=== PATIENT | male | born 1985 | race Caucasian/White ===

== ENCOUNTER 2019-11-03 10:18 | Inpatient (IN) ==
[2019-11-03] MEDS ORDERED: ZOFRAN IV ONE (10:31)
[2019-11-03 10:42] LABS: BASO# 0.02 X1000 (0.0-0.2); BASO% 0.2 % (0.0-0.8); EOS# 0.02 X1000 (0.0-0.7); EOS% 0.2 % (0.0-10.0); HEMOGLOBIN 15.6 g/dL (14.0-18.0); IMM GRAN# 0.02 X1000 (0.0-0.04); IMM GRAN% 0.2 % (0.0-0.5); LYMPH# 1.66 X1000 (1.2-3.4); LYMPH% 19.9 % (20.5-51.1); MCH 29.7 PG (27-31); MCHC 34.7 g/dL (33-37); MCV 85.7 FL (81-99); MONO# 0.58 X1000 (0.11-0.59); MPV 10.9 FL (7.4-10.4); NEUT# 6.04 X1000 (1.4-6.5); NEUT% 72.5 % (42.2-75.2); PLT 217 X1000 (130-400); RBC 5.25 XMIL (4.7-6.1); RDW 12.5 % (11.5-14.5); WBC 8.34 X1000 (4.8-10.8)
[2019-11-03 10:56] LABS: AGAP 20; ALBUMIN 4.9 g/dL (3.5-5.0); ALKALINE PHOSPHATASE 97 U/L (32-122); BUN 8 mg/dL (8-22); CHLORIDE 100 mmol/L (98-107); CK PROFILE 134 U/L (24-204); COSMO 276; CREATININE 0.8 mg/dL (0.7-1.2); ESTIMATED GFR > 60; GLUCOSE 193 mg/dL (70-104); GOT 24 U/L (10-34); GPT 22 U/L (10-44); POTASSIUM 3.8 mmol/L (3.5-5.1); SODIUM 136 mmol/L (136-145); TCO2 17 mmol/L (25-35); TOTAL PROTEIN 7.6 g/dL (6.3-8.3)
[2019-11-03 10:58] LABS: BE -1.8 mmoll (-3.0-3.0); BLOOD TYPE ARTERIAL; HCO3-(ACT) 23.4 mmoll (20.0-26.0); METHB 1.6 % (0.0-1.5); O2(CT) 21.9 mL/dL (15.0-23.0); O2HB 95.3 % (95.0-99.0); PCO2(98.6) 30 mmHg (35-45); PO2(98.6) 99 mmHg (60-100); SAMPLE BLOOD; THB 16.3 g/dL (11.5-17.4); pH(98.6) 7.45 (7.35-7.45)
[2019-11-03 11:08] LABS: INFLUENZA A NEGATIVE (NEGATIVE); INFLUENZA B NEGATIVE (NEGATIVE)
[2019-11-03 11:10] LABS: URINE SOURCE CLEAN CATCH
[2019-11-03 11:12] LABS: BILIRUBIN URINE NEGATIVE (NEGATIVE); BLOOD URINE TRACE (NEGATIVE); COLOR YELLOW; GLUCOSE URINE 70 mg/dL (NEGATIVE); KETONE URINE TRACE mg/dL (NEGATIVE); LEUKOCYTES URINE NEGATIVE (NEGATIVE); NITRITE URINE NEGATIVE (NEGATIVE); PROTEIN URINE TRACE mg/dL (NEGATIVE); SP GRAVITY URINE 1.018; TURBIDITY URINE CLEAR (CLEAR); UROBILINOGEN URINE NORMAL (NORMAL)
[2019-11-03 11:13] LABS: UR EPITHELIAL CELLS <10 /HPF (<10); URINE BACTERIA NEGATIVE /HPF; URINE RBC <10 /HPF (<10); URINE WBC <10 /HPF (<10)
[2019-11-03 11:21] LABS: UR AMPHETAMINES QUAL PRESUMPTIVE POSITIVE (NONE DETECT); UR BARBITUATES QUAL NONE DETECTED (NONE DETECT); UR BENZODIAZEPIN QUAL PRESUMPTIVE POSITIVE (NONE DETECT); UR CANNABINOIDS QUAL NONE DETECTED (NONE DETECT); UR COCAINE QUAL NONE DETECTED (NONE DETECT); UR METHADONE QUAL NONE DETECTED (NONE DETECT); UR METHAMPHETAMINE QUAL NONE DETECTED (NONE DETECT); UR OPIATES QUAL PRESUMPTIVE POSITIVE (NONE DETECT); UR OXYCODONE QUAL NONE DETECTED (NONE DETECT); UR PCP QUAL NONE DETECTED (NONE DETECT); UR PROPOXYPHENE QUAL NONE DETECTED (NONE DETECT); UR TCA QUAL NONE DETECTED (NONE DETECT)
[2019-11-03 11:35] LABS: ALLEN TEST YES; MODALITY ROOM AIR
--- NOTE | 2019-11-03 11:40 | EKG Report ---
Test Performed on : 11/03/2019 10:26:44 AM Test Reason : emboli Blood Pressure : / mmHG Vent. Rate : 089 BPM Atrial Rate : 089 BPM P-R Int : 130 ms QRS Dur : 102 ms QT Int : 372 ms P-R-T Axes : 077 078 066 degrees QTc Int : 452 ms Normal sinus rhythm. Incomplete right bundle branch block Borderline ECG No previous ECGs available Unconfirmed Result
--- NOTE | 2019-11-03 11:46 | Diag Imaging Result Doc PS360 ---
EXAM: CHEST-2 VIEWS HISTORY: cough TECHNIQUE: Chest two views COMPARISON: None. FINDINGS: The lungs are well expanded. The heart is not enlarged. The vessels are not distended. There are no infiltrates. No pleural effusions. IMPRESSION: No pneumonia Electronically signed by Anthony Bean 11/03/2019 11:44 AM
[2019-11-03 12:18] LABS: HEMOGLOBIN A1C 5.2 % (4.8-6.0)
--- NOTE | 2019-11-03 12:32 | Diag Imaging Result Doc PS360 ---
EXAM: CT HEAD W/O CONTRAST HISTORY: SYNCOPE TECHNIQUE: CT head without contrast COMPARISON: None. FINDINGS: No parenchymal hemorrhage. No epidural or subdural hematoma. No subarachnoid hemorrhage. No mass identified on this noncontrasted exam. No hydrocephalus. No sinus opacification. IMPRESSION: No hemorrhage. Negative brain CT without contrast. This exam was performed using automated exposure control, adjustment of mA or kV according to patient size, and/or use of iterative reconstruction technique. Electronically signed by Anthony Bean 11/03/2019 12:30 PM
[2019-11-03 12:53] LABS: CK INDEX 0.8 (0.0-2.5); CK-MB 2.71 ng/mL (0.0-5.0)
--- NOTE | 2019-11-03 13:05 | EKG Report ---
Test Performed on : 11/03/2019 12:11:12 PM Test Reason : repeat Blood Pressure : / mmHG Vent. Rate : 084 BPM Atrial Rate : 084 BPM P-R Int : 134 ms QRS Dur : 102 ms QT Int : 372 ms P-R-T Axes : 051 007 034 degrees QTc Int : 439 ms Normal sinus rhythm. Incomplete right bundle branch block Borderline ECG When compared with ECG of 03-NOV-2019 10:26, (Unconfirmed) Questionable change in QRS axis Unconfirmed Result
--- NOTE | 2019-11-03 14:15 | PROVIDER DOCUMENTATION ---
This chart was entered by Pedro Vivar Scribe, acting as scribe for Mynor Figueroa MD. HPI-Syncope/Dizziness - General Chief Complaint: Syncope Stated Complaint: SEIZURE Time Seen by Provider: 11/03/19 10:23 Source: patient, EMS Home Medications: Home Medication List Medication Instructions Recorded Confirmed Last Taken Type Armodafinil 1 tab PO DAILY 11/03/19 11/03/19 Unknown History - History of Present Illness-Syncope/Dizzy Nature of Presenting Problem: 34 yom presents to the ed v/a EMS after syncopal episode. EMS states pt was at [facility] at [place] , pt was sitting on the bleachers and fell over. EMS states pt was AO x3 on arrival. pt states " last thing i remember was waking up to everyone telling me i passed and just watching the 2nd half of the game prior to passing out." pt states " becoming really hot before passing out, pt was wearing a sweater." pt states no food intake this morning. pt c/o bilateral hand tingling, and nausea. Prior Episodes: reports: no prior history Onset/Duration: reports: just prior to arrival Timing: reports: still present Position/Activity at time of episode: reports: sitting Symptoms prior to episode: reports: nausea/vomiting (nausea), diaphoresis. denies: headache, injury Context: reports: lost consciousness Loss of Consciousness: brief (seconds) Location of injury. (If syncope resulted in an injury.): reports: none Current Symptoms: reports: sweaty, nausea. denies: chest pain, abdominal pain, vomiting, headache, headache, blurred vision Recently Seen Here or By Another Healthcare Provider: No Review of Systems - Adult - REVIEW OF SYSTEMS - ADULT Constitutional: denies: chills, fever Eyes: reports: no symptoms reported Ears, Nose, Mouth & Throat: reports: no symptoms reported Cardiovascular: reports: no symptoms reported Respiratory: denies: shortness of breath, wheezing Gastrointestinal: reports: see HPI, nausea. denies: abdominal pain, constipation, diarrhea, vomiting Genitourinary: reports: no symptoms reported Musculoskeletal: reports: no symptoms reported Integumentary: reports: no symptoms reported Neurological: reports: see HPI, syncope. denies: headache/migraines, slurred speech Psychiatric: reports: no symptoms reported Endocrine: reports: see HPI, excessive sweating. denies: change in skin pigment, increased hunger Hematologic/Lymphatic: reports: no symptoms reported Allergic/Immunologic: reports: no symptoms reported All Other Systems: Reviewed and Negative Past History - Adult - PAST MEDICAL HISTORY-ADULT Review of Records: reports: Old Records Reviewed, Nursing Assessment Review, Medications Reviewed, Social history reviewed & non-contributory. Major Childhood Illnesses: reports: denies history Cardiovascular: reports: denies history Respiratory: reports: denies history Gastrointestinal: reports: denies history Obstetrical/Gynecological: reports: denies history Genitourinary: reports: denies history Musculoskeletal: reports: denies history Neurological: reports: denies history Psychiatric: reports: denies history Endocrine/Immune: reports: denies history Other Conditions: reports: denies history - PRIOR SURGERIES/PROCEDURES Surgical/Procedure History: reports: reviewed, not pertinent - IMMUNIZATION STATUS Childhood Immunizations: See Nurse Assessment Flu Vaccine: See Nurse Assessment - FAMILY HISTORY Family History: reviewed, not pertinent - SOCIAL HISTORY Smoking: denies Substance Use: denies Physical Exam-General - PHYSICAL EXAM-ADULT Initial Vital Signs Reviewed: Yes - CONSTITUTIONAL General Appearance: appears well, alert, mild distress. negative: lethargic, slow to respond - RESPIRATORY Respiratory: lungs clear, normal breath sounds - CARDIOVASCULAR Cardiovascular: normal peripheral pulses, regular rate, rhythm - GENITOURINARY Male Genitalia: deferred Rectal Exam: deferred Hemoccult Exam: deferred - SKIN Integumentary: diaphoresis - NEUROLOGIC Neurologic: grossly normal - PSYCHIATRIC Psych/Mental Status: normal mood/affect, normal thought content, normal thought process, oriented x 3 Progress - PLAN OF CARE/RESULTS Progress/Plan/Lab Results: Vital Signs - 8 hr 11/03/19 10:16 11/03/19 11:07 11/03/19 13:14 Temperature 97.2 F L Pulse Rate 99 H 85 84 Respiratory Rate 24 18 15 Blood Pressure 118/74 133/72 124/79 O2 Sat by Pulse Oximetry 98 98 97 Laboratory Results - last 24 hr 11/03/19 11/03/19 11/03/19 10:23 10:25 10:30 WBC RBC Hgb Hct MCV MCH MCHC RDW Std Deviation Plt Count MPV Immature Gran % (Auto) Neut % (Auto) Lymph % (Auto) Haakon % (Auto) Eos % (Auto) Baso % (Auto) Immature Gran # (Auto) Neut # (Auto) Lymph # (Auto) Haakon # (Auto) Eos # (Auto) Baso # (Auto) D-Dimer, Quantitative Specimen Type Sample Site pH pCO2 pO2 HCO3 Base Excess Oxyhemoglobin ABG O2 Sat (Calculated) ABG O2 Saturation ABG Carboxyhemoglobin ABG Methemoglobin Noe Test A-a O2 Difference Total Hemoglobin Lactate Blood Gas Modality FiO2 % Sodium 136 Potassium 3.8 Chloride 100 Carbon Dioxide 17 L Anion Gap 20 BUN 8 Creatinine 0.8 Estimated GFR/1.73 m2 > 60 BUN/Creatinine Ratio 10 Glucose 193 H POC Glucose 162 H Estimat Average Glucose Hemoglobin A1c Calculated Osmolality 276 Calcium 10.0 Total Bilirubin 1.30 H AST 24 ALT 22 Alkaline Phosphatase 97 Creatine Kinase 134 Creatine Kinase Index CK-MB (CK-2) Troponin T Total Protein 7.6 Albumin 4.9 Globulin 3.0 Albumin/Globulin Ratio 2.0 Urine Source Urine Color Urine Turbidity Urine pH Ur Specific [place] Urine Protein Ur Glucose (Stick) Ur Ketones (Stick) Urine Blood Urine Nitrite Urine Bilirubin Urobilinogen Dipstick Urine Leukocytes Urine WBC (Auto) Urine RBC (Auto) U Epithel Cells (Auto) Urine Bacteria (Auto) Urine Opiates Screen Ur Oxycodone Screen Urine Methadone Screen U Propoxyphene Qual Ur Barbituates Screen Ur Tricyclics Screen Ur Phencyclidine Scrn Ur Amphetamines Screen U Methamphetamines Scrn U Benzodiazepines Scrn Urine Cocaine Screen U Cannabinoids Screen Influenza A (Rapid) NEGATIVE Influenza B (Rapid) NEGATIVE 11/03/19 11/03/19 11/03/19 10:30 10:30 10:30 WBC 8.34 RBC 5.25 Hgb 15.6 Hct 45.0 MCV 85.7 MCH 29.7 MCHC 34.7 RDW Std Deviation 12.5 Plt Count 217 MPV 10.9 H Immature Gran % (Auto) 0.2 Neut % (Auto) 72.5 Lymph % (Auto) 19.9 L Haakon % (Auto) 7.0 Eos % (Auto) 0.2 Baso % (Auto) 0.2 Immature Gran # (Auto) 0.02 Neut # (Auto) 6.04 Lymph # (Auto) 1.66 Haakon # (Auto) 0.58 Eos # (Auto) 0.02 Baso # (Auto) 0.02 D-Dimer, Quantitative 0.37 Specimen Type Sample Site pH pCO2 pO2 HCO3 Base Excess Oxyhemoglobin ABG O2 Sat (Calculated) ABG O2 Saturation ABG Carboxyhemoglobin ABG Methemoglobin Noe Test A-a O2 Difference Total Hemoglobin Lactate Blood Gas Modality FiO2 % Sodium Potassium Chloride Carbon Dioxide Anion Gap BUN Creatinine Estimated GFR/1.73 m2 BUN/Creatinine Ratio Glucose POC Glucose Estimat Average Glucose Hemoglobin A1c Calculated Osmolality Calcium Total Bilirubin AST ALT Alkaline Phosphatase Creatine Kinase Creatine Kinase Index CK-MB (CK-2) Troponin T < 0.010 Total Protein Albumin Globulin Albumin/Globulin Ratio Urine Source Urine Color Urine Turbidity Urine pH Ur Specific [place] Urine Protein Ur Glucose (Stick) Ur Ketones (Stick) Urine Blood Urine Nitrite Urine Bilirubin Urobilinogen Dipstick Urine Leukocytes Urine WBC (Auto) Urine RBC (Auto) U Epithel Cells (Auto) Urine Bacteria (Auto) Urine Opiates Screen Ur Oxycodone Screen Urine Methadone Screen U Propoxyphene Qual Ur Barbituates Screen Ur Tricyclics Screen Ur Phencyclidine Scrn Ur Amphetamines Screen U Methamphetamines Scrn U Benzodiazepines Scrn Urine Cocaine Screen U Cannabinoids Screen Influenza A (Rapid) Influenza B (Rapid) 11/03/19 11/03/19 11/03/19 10:34 11:02 11:02 WBC RBC Hgb Hct MCV MCH MCHC RDW Std Deviation Plt Count MPV Immature Gran % (Auto) Neut % (Auto) Lymph % (Auto) Haakon % (Auto) Eos % (Auto) Baso % (Auto) Immature Gran # (Auto) Neut # (Auto) Lymph # (Auto) Haakon # (Auto) Eos # (Auto) Baso # (Auto) D-Dimer, Quantitative Specimen Type ARTERIAL Sample Site R RADIAL pH 7.45 pCO2 30 L pO2 99 HCO3 23.4 Base Excess -1.8 Oxyhemoglobin 95.3 ABG O2 Sat (Calculated) 21.9 ABG O2 Saturation 99.0 ABG Carboxyhemoglobin 2.00 ABG Methemoglobin 1.6 H Noe Test YES A-a O2 Difference 13.0 Total Hemoglobin 16.3 Lactate 4.30 H* Blood Gas Modality ROOM AIR FiO2 % 21.0 Sodium Potassium Chloride Carbon Dioxide Anion Gap BUN Creatinine Estimated GFR/1.73 m2 BUN/Creatinine Ratio Glucose POC Glucose Estimat Average Glucose Hemoglobin A1c Calculated Osmolality Calcium Total Bilirubin AST ALT Alkaline Phosphatase Creatine Kinase Creatine Kinase Index CK-MB (CK-2) Troponin T Total Protein Albumin Globulin Albumin/Globulin Ratio Urine Source CLEAN CATCH Urine Color YELLOW Urine Turbidity CLEAR Urine pH 6.0 Ur Specific [place] 1.018 Urine Protein TRACE A Ur Glucose (Stick) 70 A Ur Ketones (Stick) TRACE A Urine Blood TRACE A Urine Nitrite NEGATIVE Urine Bilirubin NEGATIVE Urobilinogen Dipstick NORMAL Urine Leukocytes NEGATIVE Urine WBC (Auto) <10 Urine RBC (Auto) <10 U Epithel Cells (Auto) <10 Urine Bacteria (Auto) NEGATIVE Urine Opiates Screen PRESUMPTIVE POSITIVE A Ur Oxycodone Screen NONE DETECTED Urine Methadone Screen NONE DETECTED U Propoxyphene Qual NONE DETECTED Ur Barbituates Screen NONE DETECTED Ur Tricyclics Screen NONE DETECTED Ur Phencyclidine Scrn NONE DETECTED Ur Amphetamines Screen PRESUMPTIVE POSITIVE A U Methamphetamines Scrn NONE DETECTED U Benzodiazepines Scrn PRESUMPTIVE POSITIVE A Urine Cocaine Screen NONE DETECTED U Cannabinoids Screen NONE DETECTED Influenza A (Rapid) Influenza B (Rapid) 11/03/19 11/03/19 11/03/19 11:02 12:15 12:15 WBC RBC Hgb Hct MCV MCH MCHC RDW Std Deviation Plt Count MPV Immature Gran % (Auto) Neut % (Auto) Lymph % (Auto) Haakon % (Auto) Eos % (Auto) Baso % (Auto) Immature Gran # (Auto) Neut # (Auto) Lymph # (Auto) Haakon # (Auto) Eos # (Auto) Baso # (Auto) D-Dimer, Quantitative Specimen Type Sample Site pH pCO2 pO2 HCO3 Base Excess Oxyhemoglobin ABG O2 Sat (Calculated) ABG O2 Saturation ABG Carboxyhemoglobin ABG Methemoglobin Noe Test A-a O2 Difference Total Hemoglobin Lactate Blood Gas Modality FiO2 % Sodium Potassium Chloride Carbon Dioxide Anion Gap BUN Creatinine Estimated GFR/1.73 m2 BUN/Creatinine Ratio Glucose POC Glucose Estimat Average Glucose 103 Hemoglobin A1c 5.2 Calculated Osmolality Calcium Total Bilirubin AST ALT Alkaline Phosphatase Creatine Kinase 358 H D Creatine Kinase Index 0.8 CK-MB (CK-2) 2.71 Troponin T < 0.010 Total Protein Albumin Globulin Albumin/Globulin Ratio Urine Source Urine Color Urine Turbidity Urine pH Ur Specific [place] Urine Protein Ur Glucose (Stick) Ur Ketones (Stick) Urine Blood Urine Nitrite Urine Bilirubin Urobilinogen Dipstick Urine Leukocytes Urine WBC (Auto) Urine RBC (Auto) U Epithel Cells (Auto) Urine Bacteria (Auto) Urine Opiates Screen Ur Oxycodone Screen Urine Methadone Screen U Propoxyphene Qual Ur Barbituates Screen Ur Tricyclics Screen Ur Phencyclidine Scrn Ur Amphetamines Screen U Methamphetamines Scrn U Benzodiazepines Scrn Urine Cocaine Screen U Cannabinoids Screen Influenza A (Rapid) Influenza B (Rapid) Orders Category Date Time Status CHEST-2 VIEWS [RAD] Stat Exams 11/03/19 10:[address] HEAD W/O CONTRAST [CT] Stat Exams 11/03/19 11:56 Completed A1C HGB W EST AVG GLUCOSE [CHEM] Stat Lab 11/03/19 11:02 Completed ABG [RESP] Routine Lab 11/03/19 10:34 Completed CBC WITH DIFF [HEME] Stat Lab 11/03/19 10:30 Completed CK PROFILE [SP CHEM] Stat Lab 11/03/19 10:30 Completed CK PROFILE [SP CHEM] Stat Lab 11/03/19 12:15 Completed COMPREHENSIVE METABOLIC PANEL [CHEM] Stat Lab 11/03/19 10:30 Completed D-DIMER [COAG] Stat Lab 11/03/19 10:30 Completed Flu [INFLUENZA SCREEN PL] Stat Lab 11/03/19 10:25 Completed TROPONIN T Stat Lab 11/03/19 10:30 Completed TROPONIN T Stat Lab 11/03/19 12:15 Completed URINALYSIS W/POSS RFLX CULT [URINALYSIS] Stat Lab 11/03/19 11:02 Completed URINE DRUG SCREEN PL Stat Lab 11/03/19 11:02 Completed Ondansetron [Zofran] Med 11/03/19 10:31 Discontinued 8 mg IV STAT ONE EKG [EKG] Routine Ther 11/03/19 10:26 Draft EKG [EKG] Stat Ther 11/03/19 12:03 Draft Transfer/Admit Order [TRANSFER] Routine Transfer 11/03/19 13:57 Ordered Result Diagrams: 11/03/19 10:30 11/03/19 10:30 - EKG 1 Time of EKG reading by physician:: 10:26 EKG Read and Signed by:: Mynor Figueroa EKG Interpretation (*Must complete 3 of following elements*): Normal Rate: 89 Rhythm: NSR Jackson: normal QRS: normal DC Interval: normal ST Wave: normal Comments: incomplete Rt bundle branch block 2 Time of EKG reading by physician:: 12:11 EKG Read and Signed by:: Mynor Figueroa EKG Interpretation (*Must complete 3 of following elements*): Normal Rate: 84 Rhythm: NSR Jackson: normal QRS: normal DC Interval: normal ST Wave: normal Comments: incomplete Rt bundle branch block - XRAY 1 XRAY Study: Chest Impression: See EMR Report (EXAM: CHEST-2 VIEWS HISTORY: cough TECHNIQUE: Chest two views COMPARISON: None. FINDINGS: The lungs are well expanded. The heart is not enlarged. The vessels are not distended. There are no infiltrates. No pleural effusions. IMPRESSION: No pneumonia Electronically signed by Anthony Bean 11/03/2019 11:44 AM 11/03/19 1144 Interpreting Physician: Anthony Bean MD Dictated Date/Time: 11/03/19 1143 cc: Mynor Figueroa MD; Christoph Scharder) - CT/MRI 1 CT Study: Head Impression: See EMR Report ( EXAM: CT HEAD W/O CONTRAST HISTORY: SYNCOPE TECHNIQUE: CT head without contrast COMPARISON: None. FINDINGS: No parenchymal hemorrhage. No epidural or subdural hematoma. No subarachnoid hemorrhage. No mass identified on this noncontrasted exam. No hydrocephalus. No sinus opacification. IMPRESSION: No hemorrhage. Negative brain CT without contrast. This exam was performed using automated exposure control, adjustment of mA or kV according to patient size, and/or use of iterative reconstruction technique. Electronically signed by Anthony Bean 11/03/2019 12:30 PM 11/03/19 1230 Interpreting Physician: Anthony Bean MD Dictated Date/Time: 11/03/19 1228 cc: Lora Mendoza; Christoph Schrader) - CONSULTS/PCP/HOSPITALIST Notification #1 *Consult/PCP/Hospitalist*: consult w/ [place] Time Discussed: 13:52 Consult Disposition: Admit Departure - Departure Date of Disposition Decision: 11/03/19 Time of Disposition Decision: 14:00 DIAGNOSIS: Seizure Disposition: ADMITTED INPATIENT 09 Certified Medical Emergency: Emergent Condition: Stable Referrals and Follow-Ups: Christoph Schrader [Primary Care Provider] - - Critical Care Note This patient required my direct & personal management of CC.: Yes Total Time (mins): 30 Critical Care Statement: This patient required my direct personal management to treat or rule out processes, the absence of which, could potentiallly result in sudden, clinically significant life or limb threatening deterioration. Attestation - Physician/ OLAYINKA Attestation Patient care was provided by Advanced Practice Provider:: No The physician spent face to face time with patient:: Yes Advanced Practice Provider documentation review:: Supervising physician onsite and consulted in the evaluation and care of this patient. The physician did have a face to face encounter with the patient. This chart was documented by the indicated scribe, (Pedro Vivar, [employer]ribsean) and accurately reflects the services I performed and decisions made by me, Mynor Figueroa MD, as attested by the provider's signature.
[2019-11-03] MEDS ORDERED: ZOFRAN IV PRN (15:16)
[2019-11-03] MEDS ORDERED: TYLENOL PO PRN (15:16)
[2019-11-03] MEDS: NS 1,000 ML IV PRN (16:29)
[2019-11-03] MEDS ORDERED: ATIVAN IV PRN (16:41)
--- NOTE | 2019-11-03 22:56 | HISTORY AND PHYSICAL ---
PRIMARY CARE PROVIDER: Dr. Schrader from [place], which is [place] he is from. CHIEF COMPLAINT: Seizure. HISTORY OF PRESENT ILLNESS: Mr. Kory Bloom is a 34-year-old, male, with a medical history of chronic lower back pain, palpitations when he was in high school, a fever seizure when he was 5 years old, now presents after being found having a seizure while watching his daughter play basketball here locally. The who is sitting at the bedside, said that she saw out of the corner of her eyes, his feet go up, his arms contracted toward his body, his jaw locked, and they turned him to his side. He had some excessive salivation. It was at least 40 seconds or more that he had this seizure. He did not lose bowel or bladder. He did not bite his tongue. He has muscle soreness. He did not have any postictal confusion. He also did not have any precursor that caused this that they could tell. The states the only thing she noticed was that he was extremely mellow and calm this morning compared to how he usually is. When he was further questioned in front of the family, he denied any illicit drug use, but after the family left, he had admitted to taking [place]mont and then of course, his prescription medication Nuvigil. However, he is positive for opiates, amphetamines, and benzodiazepines, and he denies benzodiazepine use. Neurologically, he is intact. There are no deficits noted at this time. So, we will just monitor overnight, put him on seizure precautions, and do p.r.n. Ativan. PAST MEDICAL HISTORY: 1. Chronic lower back pain. 2. Palpitations in high school. 3. Fever seizure at 5 years old. SURGICAL HISTORY: He used to get pain shot injections in his back, but has not had any in 2 years. SOCIAL HISTORY: Denies tobacco. He quit chewing tobacco 3 months ago. Rare alcohol use, maybe once a year. Denies any illicit drug use. , 4 children. 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 FAMILY HISTORY: Mother, hypertension, diabetes, and atrial fibrillation. Father, diabetes. ALLERGIES: No known drug allergies. HOME MEDICATIONS: Nuvigil 150 mg p.o. daily. REVIEW OF SYSTEMS: A 14-point review of systems is complete and all are negative, except for those mentioned above in the HPI. PHYSICAL EXAMINATION: VITAL SIGNS: Temperature 98.5 degrees, heart rate 75, respiratory rate 20, blood pressure 121/72, O2 saturation 100% on room air. He is 193 pounds, 6 foot 1 inch, and BMI of 25.5. GENERAL: Mr. Kory Bloom is a 34-year-old, male. He is in no acute distress. He is able answer questions appropriately. HEENT: Atraumatic, normocephalic. Pupils equal, round, reactive to light. Extraocular movements intact. Mucous membranes are moist. NECK: Trachea midline. CARDIOVASCULAR: S1, S2. Regular rate and rhythm. No rubs, gallops, or murmurs. No lower extremity edema. Dorsalis and radial pulses 2+. Negative JVD or carotid bruits. PULMONARY: Clear to auscultate. Bilateral breath sounds. No accessory muscle use or work of breathing noted. GASTROINTESTINAL: Soft, nontender, nondistended. Positive bowel sounds x4. EXTREMITIES: Moves all extremities equally with full range of motion. NEUROLOGIC: Alert and oriented x3. Follows commands. Sensory is intact. SKIN: Warm, dry, intact. LABORATORY DATA: White blood cells 8000, hemoglobin 15, hematocrit 45, platelet count 217,000. D- dimer 0.37. ABGs on room air, pH 7.45, pCO2 of 30, PO2 of 99, bicarbonate 23, base excess -1.8, saturation 95%, lactate 4.3. Sodium 136, potassium 3.8, BUN 8, creatinine 0.8, glucose 193. Hemoglobin A1c is 5.2. Calcium 10. Bilirubin is 1.30, AST 24, ALT 22. CK 358, troponin less than 0.01. Albumin 4.9. Urinalysis, trace protein, 70 glucose, trace ketones, trace blood, otherwise negative. Urine drug screen positive opiates, amphetamines, benzodiazepines. Influenza negative. IMAGING: Chest x-ray, no acute findings. Head CTA, no acute findings. EKG, sinus rhythm, rate 89, QTc 452. Repeat EKG, sinus rhythm, rate 84, QTc 439. ASSESSMENT AND PLAN: 1. New-onset seizure. There is a reported seizure of him having a fever and a seizure at age 5, but otherwise no other seizures. Could highly likely be due to some of these ingestions of benzodiazepines, opiates, or amphetamines. We will do seizure precautions, do p.r.n. Ativan. If he has more seizures, then we will add an antiepileptic drug and he will need to be followed by Neurology. 2. Chronic pain syndrome. He used to get back injections. Apparently, he took Belmont that he has had for over a year this morning, and it looks like he has probably had some other medications filled like Ultram, which can also increase risk for seizures. We will just do Tylenol for now. 3. Hyperglycemia, most likely stress induced from the seizure. Hemoglobin A1c is normal. 4. Lactic acidosis, most consistent with seizure. He may be dehydrated, but kidney function is intact. We will do IV fluid hydration. His CKs are elevated, too, so that is likely secondary to seizure. 5. Deep venous thrombosis prophylaxis. Sequential compression devices. Dictated by MARIA TERESA Loaiza for Rob Cortes MD Addendum: Patient seen and examined by myself. Agree with MARIA TERESA note. It reflects my assessment and plan. Patient is being admitted to hospital for new onset seizures. Will order MRI of brain and consult Neurology. Will order an EEG as well. cc: MARIA TERESA Loaiza MD [facility]
[2019-11-04] MEDS: NS 1,000 ML IV PRN ×2 (00:30→09:03)
[2019-11-04 06:04] LABS: BASO# 0.01 X1000 (0.0-0.2); BASO% 0.1 % (0.0-0.8); EOS# 0.01 X1000 (0.0-0.7); EOS% 0.1 % (0.0-10.0); HEMATOCRIT 40.1 % (42.0-52.0); HEMOGLOBIN 13.5 g/dL (14.0-18.0); LYMPH# 1.33 X1000 (1.2-3.4); LYMPH% 19.1 % (20.5-51.1); MCH 29.3 PG (27-31); MCHC 33.7 g/dL (33-37); MCV 87.2 FL (81-99); MONO# 0.73 X1000 (0.11-0.59); MONO% 10.5 % (1.7-9.3); MPV 10.8 FL (7.4-10.4); NEUT# 4.87 X1000 (1.4-6.5); NEUT% 70.2 % (42.2-75.2); PLT 160 X1000 (130-400); RDW 12.6 % (11.5-14.5); WBC 6.95 X1000 (4.8-10.8)
[2019-11-04 06:23] LABS: AGAP 10; ALBUMIN 4.2 g/dL (3.5-5.0); ALKALINE PHOSPHATASE 82 U/L (32-122); BUN 7 mg/dL (8-22); CALCIUM 8.9 mg/dL (8.8-10.2); CHLORIDE 107 mmol/L (98-107); COSMO 278; CREATININE 0.7 mg/dL (0.7-1.2); ESTIMATED GFR > 60; GLUCOSE 109 mg/dL (70-104); GOT 49 U/L (10-34); GPT 22 U/L (10-44); POTASSIUM 3.7 mmol/L (3.5-5.1); SODIUM 140 mmol/L (136-145); TCO2 23 mmol/L (25-35); TOTAL PROTEIN 6.4 g/dL (6.3-8.3)
[2019-11-04] MEDS ORDERED: NS 1,000 ML IV PRN (10:38)
--- NOTE | 2019-11-04 11:10 | PROGRESS NOTE ---
DATE: 11/04/2019 SUBJECTIVE: The patient seems to be stable at this moment. No acute events overnight. He is completely awake, alert, and oriented x3. No focal deficits. OBJECTIVE: Vital Signs: Temperature 98.5 degrees, pulse 72, respiratory rate 20, blood pressure 117/64, oxygen saturation 98 on room air. HEENT: Head normocephalic, no trauma. PERRLA. Neck: Supple. No JVD. No masses. Central trachea. Chest: Clear to auscultation. No wheezing. No rales. Abdomen: Soft, nontender, nondistended. No hepatosplenomegaly. Extremities: No edema, no clubbing, no cyanosis. Neurological: The patient is awake, alert, and oriented x3. No focal deficits. LABORATORY DATA: WBC 6.9, hemoglobin 13.5, hematocrit 40.1, platelets 160,000. Sodium 140, potassium 3.7, chloride 107, bicarbonate 23, BUN 7, creatinine 0.7, glucose 109, calcium 8.9, total bilirubin 2.2, AST 49, ALT 22, alkaline phosphatase 82. ASSESSMENT AND PLAN: 1. Apparent seizure activity. As per the , he was having some tonic-clonic movements. After the seizures, he did not answer any questions for around 5 minutes or so, and then he was awake, alert, and oriented, I do not see any focal deficits. CT scan negative. He does have a positive urine toxicology that showed opiates, amphetamine, and benzodiazepine, but he denied taking amphetamines or benzodiazepines. He takes [place] as needed for chronic lower back pain. 2. Chronic pain syndrome. He used to get back injections, but now he is taking [place] on and off. He denied taking Tramadol. As per the patient, he is not doing amphetamines or benzodiazepines. 3. Hyperglycemia, normal hemoglobin A1c. 4. Lactic acidosis, consistent with seizures. Kidney function is stable, so I will monitor. He has been getting normal saline at 125 mL/h. I will decrease it to 75 since he is completely awake, alert and oriented x3. Kidney function is good and he is tolerating his diet. 5. Deep vein thrombosis prophylaxis with sequential compression devices. This patient also has been taking armodafinil. I do not think this can cause seizures, but I am not completely sure. I have requested an evaluation by Neurology Department to see this patient. I had a really large conversation with this patient about driving. I told him that he can not drive at this moment. Neurology Department will see him. cc: Brian Gordon MD
[2019-11-05 06:00] LABS: BASO# 0.02 X1000 (0.0-0.2); BASO% 0.3 % (0.0-0.8); EOS# 0.03 X1000 (0.0-0.7); EOS% 0.5 % (0.0-10.0); HEMATOCRIT 38.7 % (42.0-52.0); HEMOGLOBIN 12.8 g/dL (14.0-18.0); LYMPH% 28.7 % (20.5-51.1); MCHC 33.1 g/dL (33-37); MCV 87.6 FL (81-99); MONO# 0.65 X1000 (0.11-0.59); MONO% 9.8 % (1.7-9.3); MPV 11.1 FL (7.4-10.4); NEUT# 4.02 X1000 (1.4-6.5); NEUT% 60.7 % (42.2-75.2); PLT 155 X1000 (130-400); RBC 4.42 XMIL (4.7-6.1); RDW 12.5 % (11.5-14.5); WBC 6.62 X1000 (4.8-10.8)
[2019-11-05 06:10] LABS: AGAP 10; ALKALINE PHOSPHATASE 75 U/L (32-122); BUN 9 mg/dL (8-22); CALCIUM 9.1 mg/dL (8.8-10.2); CHLORIDE 108 mmol/L (98-107); COSMO 285; CREATININE 0.8 mg/dL (0.7-1.2); ESTIMATED GFR > 60; GLUCOSE 121 mg/dL (70-104); GOT 36 U/L (10-34); GPT 22 U/L (10-44); SODIUM 143 mmol/L (136-145); TCO2 26 mmol/L (25-35); TOTAL PROTEIN 6.2 g/dL (6.3-8.3)
[2019-11-05 06:14] LABS: CK PROFILE 707 U/L (24-204)
[2019-11-05 06:29] LABS: CK INDEX 0.3 (0.0-2.5)
[2019-11-05 11:40] VITALS: BP 120/68
--- NOTE | 2019-11-06 04:10 | CONSULTATION ---
DATE OF CONSULTATION: 11/05/2019 Mr. Bloom is 34 years old and had an episode 2 days ago with question of seizure versus other etiology. History from the patient is that he felt well. He was watching a basketball game. He went to get a drink and returned to the bleachers. He felt well as he sat down. He next realized he was in the bleachers with people checking on him. His is present at the bedside now and she witnessed the episode. She reports patient seemed well through that day. When he returned to the bleachers after getting the drink, he sat on the bleacher and she saw his feet extended and he seemed to lean back. Arms were rigid, flexed at the elbows, possibly crossed at the wrists. She is not certain about the posture of the hands and fingers. There was some generalized jerking for 30 to 40 seconds. Mouth was open. Eyes were open. He was unresponsive during that time. There was no incontinence. There was no tongue or lip biting. Episode resolved spontaneously. Within 2 to 3 minutes, according to , he seemed recovered, talking, having appropriate conversation. He was kept seated or reclined in the bleachers until ambulance personnel arrived. He was transported to the emergency room, evaluated and admitted . He has felt well since then. There is no history of adulthood seizure. 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 He has not had head injury since childhood . He has never had diagnosed stroke. He has not had any other episodes of altered awareness, altered consciousness, memory gap or unresponsiveness. He denies illicit drug use, drug intoxication, drug misuse. Ethanol intake is infrequent and never to excess and he had not used ethanol in recent weeks. Here, he has been afebrile. Heart rate was recorded 90s on admission.and has ranged 60s-80s in recent hours. Systolic blood pressures have been 100 to 130s. Lab showed slightly elevated blood sugar and slightly elevated AST, nothing else remarkable in the chemistry. Noncontrast CT of the head is reported unremarkable. He has not had EEG. Home medicines include armodafinil, possibly trazodone, either hydrocodone or oxycodone, possibly acetaminophen/codeine. The pain medicines are all on a p.r.n. basis and he did have a dose on the morning prior to this episode. He is not certain that he has taken trazodone. He takes armodafinil 2 or 3 days a week and has never had problems tolerating that. Urine drug screen was positive for amphetamine, benzodiazepine, opiate. He denies inappropriate drug use. He specifically denies taking amphetamine or benzodiazepine. On exam Mr. Bloom is awake, alert, attentive, appropriate, oriented. Speech is not dysarthric. Language functioning intact. Recent and remote memory are good. He discussed recent news with very good detail. Head and neck are unremarkable. Visual franco are full tested grossly by confrontational finger counting. Extraocular movements are full. Pupils are large, 5-6 mm and both react to bright light. Facial motility is normal and symmetric. Facial sensation is intact. Gag is intact. Tongue is midline. He can hear. Shoulder shrug is equal. Strength is normal in the arms and legs. He did well on [id number] testing bilaterally. Sensation is intact on gross testing over the limbs. Plantar response is silent bilaterally. I did not test his gait. IMPRESSION: Episode with some generalized rigidity and jerking, spontaneous resolution, no definite postictal state. Overall, features are not definite for seizure. If this was a seizure, explanation is unclear. There is not history of recent head injury, inappropriate drug ingestion, intoxication or withdrawal, fever, other toxic state or metabolic state. I suspect the drug screen finding of amphetamine is cross-reaction with armodafinil. I suspect the benzodiazepine finding is either spurious or he might have received a dose of benzodiazepine for emergency management prior to having urine obtained for drug screen. I do not suspect illicit drug use, drug intoxication, drug withdrawal or other medication related explanation for the episode. He will have outpatient EEG when arranged and he has instructions to call my office after that is reported. If he has further episodes, depending on the features reported, we might need to consider cardiac rhythm monitoring and referral for cardiology evaluation . From neurology standpoint I believe he can be discharged home. We discussed the [place] Law as it pertains to driving and he understands his responsibility. I encouraged him to stay well rested and well hydrated. I encouraged him to take his medications as directed. I will be glad to see him as an outpatient or his primary physician in the [place] might refer him for neurology follow-up closer to home. Thanks for asking Neurology to see Mr. Bloom. cc: Wayne Batista III, MD MTDD
--- NOTE | 2019-11-06 10:16 | PROGRESS NOTE ---
DATE: 11/05/2019 He is seizure free. He has been seizure free since Tuesday. Today is Tuesday. He seems to be doing okay. No major issues. He does report kind of severe sleeplessness. 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 Sometimes he stays up for 24 hours. In any case, he had been very stressed out. He apparently drove his kids. 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 In any case, he has had a remote history of seizure as a child. He has had traumatic head injury as a child, but he has not had any seizures. He has not been on any seizure medications. His drug screen was positive for amphetamines, but I am not sure if there is cross-reactivity with his modafinil. In any case, patient stabilized. He is seizure- free. We are going to get Neurology to evaluate him. If he is stable, then I think he should be able to go home later today. Since he only had 1 discrete episode, we have not started neuroleptic medication. I did give him a prescription of trazodone for assistance in sleeping, and we will see how he does. cc: John Scott MD
--- NOTE | 2019-11-06 12:22 | DISCHARGE SUMMARY ---
ADMISSION DATE: 11/03/2019 DISCHARGE DATE: 11/05/2019 CONSULTATIONS: Dr. Batista with Neurology. PERTINENT PROCEDURES: Head CT negative. Chest x-ray, no pneumonia. EKG, normal sinus rhythm with an incomplete right bundle branch. DISCHARGE DIAGNOSES: 1. Apparent seizure activity with some tonic clonic movements. Head CT was negative. The patient has a positive urine toxicology screen that showed opiates, amphetamines and benzodiazepines. However, he denied taking amphetamines and benzodiazepines. He does take [place] for chronic lower back pain. He was assessed by Dr. Batista with Neurology. He set him up for an outpatient EEG. 2. Chronic pain syndrome. Continue home regimen. 3. Hyperglycemia with normal hemoglobin A1c. 4. Lactic acidosis consistent with seizures. Kidney function stable now resolved after IV fluids. 5. Apparent insomnia issues. Patient is on Armodafinil. We will also add trazodone. HOSPITAL COURSE: Briefly, Mr. Bloom is a 34-year-old gentleman with a past medical history of chronic lower back pain and palpitations in high school, seizure fever when he was 5 years old, presented to the ED after found having a seizure while watching his daughter play basketball here locally. Per the , she saw his feet go up his arms contracted toward his body and his jaw locked. They turned him on his side. He had some excessive salivation. It lasted at least 40 seconds or more. He did not lose bowel or bladder. He did not bite his tongue. He had muscle soreness. He did not have any postictal confusion. No precursor. His felt that he was extremely mellow and calm on the morning that happened than usual. He denies any illicit drug use besides his prescription [place] for his back pain and Nuvigil. However, he was positive for opiates, amphetamines and benzodiazepine, but he denied benzodiazepine use. Neurologically, he has remained intact. He has been seizure-free throughout his admission. He was evaluated by Neurology who set him up for an EEG as an outpatient. DISCHARGE DIET: Regular. DISCHARGE MEDICATIONS: 1. Armodafinil 150 mg to take 1 hour before shift work and he is to take 1 to 2 tablets 6 hours after 1st dose. 2. Restoril 25 mg p.o. at bedtime. FOLLOWUP: Mr. Bloom is being discharged back home with self care. He has been educated on seizure precautions as well as laws of driving, taking medications as prescribed and staying well hydrated. He is to follow up with Dr. Batista as well as his outpatient EEG. He can return to the ED or call 911 for any worsening of symptoms. Dictated by MARIA TERESA Farias for John Scott MD cc: John Scott MD [facility]
== END 2019-11-05 16:28 | disposition home or self-care (01) | DRG 101 ==
LOC: P.ED 10:18 → P.MEDSURG 10:19 → SUATTDRO 10:19
PROVIDERS: ATTEND Internal Medicine